=== PATIENT | female | born 2000 | race Caucasian/White ===

== ENCOUNTER 2021-06-30 11:08 | Outpatient (REF) | payer SELFPAY ==
[2021-07-02 16:38] LABS: COVID-19 RT-PCR UVMMC Result Negative (Negative)
== END 2021-06-30 11:09 | disposition home or self-care (01) ==
LOC: LBN 11:08
PROVIDERS: Visit Provider Nurse Practitioner Family
DX: Z20.822 Contact with and (suspected) exposure to COVID-19 (principal); J06.9 Acute upper respiratory infection, unspecified
CPT/HCPCS: U0003